=== PATIENT | female | born 1965 ===

== ENCOUNTER 2016-09-03 06:57 | Day surgery (SDC) | payer BC ==
[2016-09-03 07:18] VITALS: BMI 25.9
[2016-09-03 07:47] VITALS: O2SAT 100
[2016-09-03] MEDS ORDERED: Propofol 10 mg/ml Inj (20 ML) ONE (09:29)
[2016-09-03] MEDS ORDERED: Phenylephrine 10 mg/ml Inj ONE (09:29)
[2016-09-03] MEDS ORDERED: Atropine 0.4 mg/ml Inj (1 mL) ONE (09:29)
[2016-09-03 10:22] VITALS: TEMP 98
[2016-09-03 11:15] VITALS: BP 106/55; PULSE 61; RESP 17
== END 2016-09-03 10:55 | disposition home or self-care (01) ==
LOC: C.ENDO 06:57
PROVIDERS: ATTEND Internal Medicine Gastroenterology
DX: Z12.11 Encounter for screening for malignant neoplasm of colon (principal); K64.0 First degree hemorrhoids
CPT/HCPCS: 45378; J0461; J2370; J2704

== ENCOUNTER 2018-01-09 20:26 | Emergency (ER) | payer BC ==
[2018-01-09 20:26] VITALS: BMI 25.9
[2018-01-09] MEDS ORDERED: Labetalol 25mg/5ml Syringe IV STA (21:10)
--- NOTE | 2018-01-09 21:10 | C.PDOC ---
History Of Present Illness 52 year old female presents to the ED for evaluation of elevated blood pressure [employer]. Patient reports she had a "discomfort, small pain in the right head". Patient measures her blood pressure she noted it to be 200/100. Patient states she is compliant with her medications. Patient reports her blood pressure normally is at 120/80. Patient is currently asymptomatic in the ED with a blood pressure of 140/100. Patient denies visual changes, CP, palpitations, nausea, vomit, dizziness. Time Seen by Provider: 01/09/18 20:48 Chief Complaint (Nursing): High Blood Pressure History Per: Patient History/Exam Limitations: no limitations Onset/Duration Of Symptoms: Mins Current Symptoms Are (Timing): Still Present Quality Of Symptoms: Asymptomatic Recent travel outside of the [place]: No Additional History Per: Patient Past Medical History Reviewed: Historical Data, Nursing Documentation, Vital Signs Vital Signs: Last Vital Signs Temp 98.2 F 01/09/18 20:36 Pulse 67 01/09/18 21:52 Resp 20 01/09/18 21:52 BP 149/87 01/09/18 21:52 Pulse Ox 96 01/09/18 21:52 - Medical History PMH: HTN, Hyperthyroidism Denies: Chronic Kidney Disease Surgical History: No Surg Hx Family History: States: Unknown Family Hx - Social History Hx Alcohol Use: No Hx Substance Use: No - Immunization History Hx Tetanus Toxoid Vaccination: No Hx Influenza Vaccination: No Hx Pneumococcal Vaccination: No Review Of Systems Constitutional: Negative for: Fever, Chills Eyes: Negative for: Vision Change Cardiovascular: Negative for: Chest Pain, Palpitations Respiratory: Negative for: Shortness of Breath Gastrointestinal: Negative for: Nausea, Vomiting Neurological: Negative for: Weakness, Numbness, Headache, Dizziness Physical Exam - Physical Exam Appears: Non-toxic, No Acute Distress Skin: Normal Color, Warm, Dry Head: Atraumatic, Normacephalic Eye(s): bilateral: Normal Inspection Neck: Normal ROM, Supple Chest: Symmetrical Cardiovascular: Rhythm Regular Respiratory: Normal Breath Sounds, No Rales, No Rhonchi, No Wheezing Gastrointestinal/Abdominal: Soft, No Tenderness, No Guarding, No Rebound Extremity: Normal ROM, No Tenderness, No Swelling Neurological/Psych: Oriented x3, Normal Speech, Normal Cognition Gait: Steady ED Course And Treatment O2 Sat by Pulse Oximetry: 98 (ON RA) Pulse Ox Interpretation: Normal Medical Decision Making Medical Decision Making: Plan: * CT head * Labetalol 20 mg IV Disposition Counseled Patient/Family Regarding: Studies Performed, Diagnosis, Need For Followup - Disposition Referrals: YOUR,PMD [Other] Disposition: HOME/ ROUTINE Disposition Time: 22:39 Condition: IMPROVED Instructions: High Blood Pressure (DC) Forms: [employer] (Guamanian) Print Language: SLOVAK - Clinical Impression Clinical Impression: Hypertension, Headache - Scribe Statement The provider has reviewed the documentation as recorded by the Scribmj Aguilar All medical record entries made by the Daishaibmj were at my direction and personally dictated by me. I have reviewed the chart and agree that the record accurately reflects my personal performance of the history, physical exam, medical decision making, and the department course for this patient. I have also personally directed, reviewed, and agree with the discharge instructions and disposition.
[2018-01-09] MEDS ORDERED: Labetalol 5mg/ml (4ml) ONE (21:18)
[2018-01-09 22:57] VITALS: BP 154/85; PULSE 65; RESP 18; TEMP 98.5; O2SAT 99
--- NOTE | 2018-01-10 08:31 | CT ---
Date of service: 01/09/2018 PROCEDURE: CT HEAD WITHOUT CONTRAST. HISTORY: GILLIAM, HTN COMPARISON: None available. TECHNIQUE: Axial computed tomography images were obtained through the head/brain without intravenous contrast. Radiation dose: Total exam DLP = 49259.25 mGy-cm. This CT exam was performed using one or more of the following dose reduction techniques: Automated exposure control, adjustment of the mA and/or kV according to patient size, and/or use of iterative reconstruction technique. FINDINGS: HEMORRHAGE: No intracranial hemorrhage. BRAIN: No mass effect or edema. Left frontal encephalomalacia common nonspecific. Possible old infarct. Correlate with history. No evidence of acute infarct. VENTRICLES: Unremarkable. No hydrocephalus. CALVARIUM: Unremarkable. PARANASAL SINUSES: Unremarkable as visualized. No significant inflammatory changes. MASTOID AIR CELLS: Unremarkable as visualized. No inflammatory changes. OTHER FINDINGS: None. IMPRESSION: No intracranial mass, hemorrhage or evidence of acute infarct. Old left frontal encephalomalacia change common nonspecific. Otherwise unremarkable examination. The preliminary findings for this examination were reported by [facility] at 10:37 p.m. on 01/09/2018. There is concurrence of this report with the preliminary findings.
== END 2018-01-09 22:57 | disposition home or self-care (01) ==
LOC: C.ER 20:26
DX: I10 Essential (primary) hypertension (principal); R51 Headache